=== PATIENT | male | born 1970 | race Caucasian/White ===

== ENCOUNTER 2022-02-20 09:37 | Day surgery (SDC) | payer BC ==
[~2022-02-20] VITALS: Ht 182.9 cm; Wt 115.7 kg
[~2022-02-20 09:37] MED LIST: BUSPIRONE10 MG PO; FLUOXETINE20 MG PO; HYDROCHLOROT12.5 MG PO; JARDIANCE25 MG; LIPITOR40 M1 PO; LISINOPRIL40 MG PO; METFORMIN HCL500 M2 PO; NORVASC5 M1 PO; OZEMPIC 8 MG/3M1 INJ; ZYRTEC10 M3 PO
[2022-02-20 12:19] VITALS: BP 104/73
== END 2022-02-20 12:06 | disposition home or self-care (01) | DRG 951 ==
LOC: ENDO 09:37
PROVIDERS: ATTEND Surgery
PROC: 0DJD8ZZ Inspection of Lower Intestinal Tract, Via Natural or Artificial Opening Endoscopic (ICD-10-PCS; principal; 2022-02-20)
DX: Z12.11 Encounter for screening for malignant neoplasm of colon (principal); K57.30 Diverticulosis of large intestine without perforation or abscess without bleeding; K64.8 Other hemorrhoids; I10 Essential (primary) hypertension; E11.9 Type 2 diabetes mellitus without complications; Z79.84 Long term (current) use of oral hypoglycemic drugs